=== PATIENT | female | born 1930 | race Caucasian/White ===

== ENCOUNTER 2021-01-24 16:05 | Emergency (ER) | payer MEDICARE, MEDICAID ==
[~2021-01-24] VITALS: Ht 160 cm; Wt 32.7 kg
[~2021-01-24 16:05] MED LIST: CITRATE OF MAG296 ML PO; COLACE100 MG PO; FLEXERIL PO; HYDROCHLOROTHIA25 M1 PO; MULTIVITAMINS1 EAC7 PO; OMEPRAZOLE 20 M20 MG PO; POTASSIUM20; SPIRIVA INH
[2021-01-24 17:04] LABS: HEMATOCRIT 31.5 % (37.0-47.0); HEMOGLOBIN 10.2 gm/dL (12.0-15.0); MCH 21.7 pg (26.0-34.0); MCHC 32.4 g/dL (28.0-37.0); MCV 66.8 fL (80.0-100.0); MPV 6.5 fl. (7.2-11.1); NUCLEATED RBCS 0 /100WBC; PLATELET COUNT* 358 thou/uL (150-400); RBC 4.71 mil/uL (4.20-5.00); RDW-CV 20.8 % (10.5-14.5); WBC 10.7 thou/uL (4.0-11.0)
[2021-01-24 17:13] LABS: CALCIUM 8.2 mg/dL (8.5-10.1); CREATININE 0.6 mg/dL (0.6-1.3); POTASSIUM 4.8 mmol/L (3.5-5.1)
[2021-01-24 17:18] LABS: ALBUMIN 1.9 g/dL (3.4-5.0); TOTAL BILIRUBIN 0.5 mg/dL (<0.1-1.0); TOTAL PROTEIN 5.7 g/dL (6.4-8.2)
[2021-01-24 17:50] LABS: ABSOLUTE LYMPHOCYTES 0.6 thou/uL (0.8-5.3); ABSOLUTE MONOCYTES 0.1 thou/uL (0.0-1.2)
[2021-01-24 17:51] LABS: OVALOCYTES 1+; PLATELET ESTIMATE ADEQUATE
[2021-01-24 17:55] LABS: ANISOCYTOSIS 2+
[2021-01-24 17:57] LABS: HYPOCHROMASIA 2+; MICROCYTES 2+; POIKILOCYTOSIS 1+
[2021-01-24 18:44] LABS: URINE BLOOD NEGATIVE (Negative); URINE CLARITY CLEAR; URINE COLOR YELLOW; URINE GLUCOSE-RANDOM NEGATIVE (Negative); URINE KETONES TRACE (Negative); URINE LEUKOCYTES NEGATIVE (Negative); URINE NITRITE NEGATIVE (Negative); URINE PROTEIN NEGATIVE (Negative)
[2021-01-24 18:46] LABS: ICTOTEST (BILI CONFIRMATORY) Negative (Negative); URINE BILIRUBIN 1+ (Negative)
[2021-01-24 21:45] VITALS: BP 112/76
--- NOTE | 2021-01-25 15:09 | EKG ---
[place] [address] ELECTROCARDIOGRAM REPORT Name: WARRENSILVIANOJAKI YADI Room: [facility]#: [id number] Admission: 01/24/21 Attend Phys: Discharge: 01/24/21 Date of : [birth year] Date of Service: 01/24/21 1623 Report #: [id number] THIS REPORT FOR: //name// [facility] ED Test Date: 2021-01-24 Test Time: 16:23:52 Pat Name: JAKI MATHEW Department: Room: Gender: F [employer]age Hand: DENICE : 1930 Requested By: Rogerio Sherwood Order Number: [id number] MD: Ever Pearce Measurements Intervals [place] Rate: 104 P: 78 CO: 148 QRS: -89 QRSD: 151 T: 56 QT: 329 QTc: 433 Interpretive Statements Sinus tachycardia Probable left atrial enlargement Nonspecific IVCD with LAD Inferior infarct, old possible No previous ECG available for comparison Electronically Signed On 01-25-2021 15:08:58 CDT by Ever Pearce [email or web address] <ELECTRONICALLY SIGNED> By: Ever Pearce MD, FACC 01/25/21 1508 1623 1623 Ever Pearce MD, [facility] /EPI
== END 2021-01-24 21:45 | disposition home or self-care (01) ==
LOC: M.ERS 16:05
PROVIDERS: Emergency Medicine
DX: S81.812A Laceration without foreign body, left lower leg, initial encounter (principal); S51.812A Laceration without foreign body of left forearm, initial encounter; S70.02XA Contusion of left hip, initial encounter; F17.210 Nicotine dependence, cigarettes, uncomplicated; Z91.041 Radiographic dye allergy status; Z88.3 Allergy status to other anti-infective agents; Z91.040 Latex allergy status; Z88.2 Allergy status to sulfonamides; Z91.012 Allergy to eggs; Z79.899 Other long term (current) drug therapy; Z90.710 Acquired absence of both cervix and uterus; W01.0XXA Fall on same level from slipping, tripping and stumbling without subsequent striking against object, initial encounter; Y93.89 Activity, other specified; Y92.89 Other specified places as the place of occurrence of the external cause; Y99.9 Unspecified external cause status